=== PATIENT | female | born 1985 | race Caucasian/White ===

== ENCOUNTER 2024-09-13 14:13 | Emergency (ER) | payer MEDICAID ==
[~2024-09-13] VITALS: Ht 165.1 cm; Wt 52.0 kg
[2024-09-13] MEDS ORDERED: OMEPRAZOLE20 MG PO (14:29)
[2024-09-13] MEDS ORDERED: PHENERGAN25 MG/1 M1 INJ (14:30)
[2024-09-13] MEDS ORDERED: ONDANSETRON ODT8 MG PO (14:30)
[2024-09-13] MEDS ORDERED: NEURONTIN300 MG PO (14:30)
[2024-09-13] MEDS ORDERED: ondansetron HCL 4 MG/2 ML VIAL IV ONE ×2 (14:45→16:00)
[2024-09-13 14:47] LABS: BASOPHILS 0.3 % (0-2); EOSINOPHILS 0.2 % (0-6); HEMATOCRIT 49.1 % (35.0-50.0); HEMOGLOBIN 16.9 g/dL (12.0-18.0); LYMPHOCYTES 9.9 % (24-44); MCH 31.7 (27-36); MCHC 34.4 g/dl (30-36); MCV 92.3 fl (81-99); NEUTROPHILS 85.6 % (39-80); PLATELET COUNT 322 K/uL (140-440); RBC 5.32 M/ul (4.3-5.7); RDW 13.8 (10.5-15.0)
[2024-09-13 15:03] LABS: ALBUMIN 4.6 g/dL (3.4-5.0); ALBUMIN/GLOBULIN RATIO 1.15 (1.1-2.4); ANION GAP 18.6 (7-21); BILIRUBIN, TOTAL 0.4 ng/dL (0.2-1.0); BUN/CREATININE RATIO 5.88 (6.0-28.6); CALCIUM 10.3 mg/dL (8.5-10.1); CREATININE, SERUM 0.85 mg/dL (0.55-1.02); MAGNESIUM 1.9 mg/dL (1.8-2.4); POTASSIUM 3.6 mmol/L (3.5-5.1); PROTEIN, TOTAL 8.6 g/dL (6.4-8.2)
--- OUTSIDE RECORDS SUMMARY | 2024-09-13 15:19 | XMS ---
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 Events No recent Security Events currently on file CRITERIA MET - 6 ED Visits in 6 Months - [facility] - 2 Visits in 30 Days - [facility] - 3 Facilities in 90 Days CARE PROVIDERS [facility], [facility]: Primary Care 07/05/2024-Current PRACTICE PHONE: [phone] Courtney White Current PHONE: [phone] ALEXANDER MUNOZ Automobile Wrecker/Ice Sculptor Current CARE [facility] TEAM PHONE: [phone] MEIR DOMINGUEZ V Internal Medicine Current PHONE: Unknown Care Guidelines exist for the following facilities: Julius Monroe ( 08/28/2016 ) Jj VISIT COUNT (12 MO.) [facility] ([facility] 9 [facility] [place] 4 [facility]. 2 [facility] 1 KERWIN Anne TOTAL 26 NOTE: Visits indicate total known visits. ED/UCC VISIT TRACKING (12 MO.) 09/13/2024 14:13 [facility] [place] TYPE: Emergency COMPLAINT: - ABDOMINAL PAIN 09/13/2024 10:16 [facility] Madhu HERNANDEZ ([place]) TYPE: Emergency DIAGNOSES: - Nausea with vomiting, unspecified - Other chronic pain - Unspecified abdominal pain - Abdominal Pain - EMS - Seizure (Adult - Prior Hx Of) 09/01/2024 11:09 [facility] Madhu HERNANDEZ ([place]) TYPE: Emergency DIAGNOSES: - Generalized abdominal pain - Opioid use, unspecified with withdrawal - Other chronic pain - abd pain, dehydration, n/v/d - Abdominal Pain - Back Pain - Emesis 08/29/2024 21:06 [facility] Madhu Leung DAVID (Madhu Leung) TYPE: Emergency DIAGNOSES: - Nausea with vomiting, unspecified - Upper abdominal pain, unspecified - Abdominal Pain - Emesis - vomiting 08/20/2024 21:57 [facility] Madhu Leung DAVID (Madhu Leung) TYPE: Emergency DIAGNOSES: - Other chronic pain - Other shoulder lesions, right shoulder - Pelvic and perineal pain - Medical Problem (Minor) - RS arm pain, Tailbone pain worsening 06/27/2024 19:23 [facility] TYPE: Emergency DIAGNOSES: 32653. Dehydration, Weight loss 06/10/2024 20:42 [facility] Madhu Leung DAVID (Madhu Leung) TYPE: Emergency DIAGNOSES: - Other specified diseases of anus and rectum - abd - abd pain - Abdominal Pain - Tailbone Pain 06/08/2024 23:46 [facility] [place] (Madhu Leung) TYPE: Emergency DIAGNOSES: - Unspecified abdominal pain - abd pain - Abdominal Pain 06/04/2024 21:06 [facility] [place] (Madhu Leung) TYPE: Emergency DIAGNOSES: - Other chest pain - Other chronic pain - Unspecified abdominal pain - chest pain 06/03/2024 15:26 [facility] [place] (Madhu Leung) TYPE: Emergency DIAGNOSES: - Unspecified abdominal pain - Abdominal Pain 05/13/2024 12:[facility]: [facility] DIAGNOSES: - Abnormal electrocardiogram [ECG] [EKG] - Other chronic pain - Unspecified abdominal pain - Rectal Bleed - Syncope - syncope, blood in stool 05/13/2024 02:20 [facility] [place] [place] TYPE: Emergency DIAGNOSES: - abd pain - Abdominal Pain 05/07/2024 04:25 [place] TYPE: Emergency DIAGNOSES: - Abdominal pain 04/26/2024 16:40 [facility] [place] TYPE: Emergency DIAGNOSES: - Abdominal Pain; emesis - Emesis 04/15/2024 23:51 [facility] HERNANDEZ (Madhu Leung) TYPE: Emergency DIAGNOSES: - Cyclical vomiting syndrome unrelated to migraine - Epigastric pain - abd pain - Abdominal Pain - Hematemesis [facility]24 [facility]: Emergency DIAGNOSES: - Fever, unspecified - Periumbilical pain - Abdominal Pain - Fever (9 Weeks To 74 Years) - vomiting,seizures,abd pain - Weight Loss 03/08/2024 19:31 [facility] [place] TYPE: Emergency DIAGNOSES: - Procedure and treatment not carried out due to patient leaving prior to being seen by health care provider - Abdominal Pain - Stomach pain 02/27/2024 11:25 [facility] [place] TYPE: Emergency DIAGNOSES: - Gastrointestinal hemorrhage, unspecified - Unspecified abdominal pain - abd pain - Abdominal Pain 12/14/2023 10:34 [facility] TYPE: Emergency DIAGNOSES: 23015. seizures 62802. Noninfective gastroenteritis and colitis, unspecified . Unspecified abdominal pain . Unspecified convulsions 12/13/2023 11:43 Anne-Marie GARRISON [place] TYPE: Emergency DIAGNOSES: - Procedure and treatment not carried out due to patient leaving prior to being seen by health care provider - Abdominal Pain - pain Plus 6 More Visits INPATIENT VISIT TRACKING (12 MO.) No inpatient visits to display in this time frame [email or web address]
[2024-09-13] MEDS ORDERED: SODIUM CHLORIDE 0.9% 1,000 ML IV PRN (16:00)
[2024-09-13] MEDS ORDERED: MORPHINE SULFATE 4 MG/ML VIAL IV ONE ×2 (16:00→17:45)
[2024-09-13 17:00] LABS: BILIRUBIN, URINE NEGATIVE (negative); BLOOD/HGB, URINE NEGATIVE (Negative); KETONE, URINE TRACE (Negative); LEUK ESTERASE, URINE NEGATIVE (negative); NITRITE, URINE NEGATIVE (negative); PH, URINE 8.5 (5-7)
[2024-09-13] MEDS ORDERED: LIDOCAINE & ANTACID 35 ML BTL PO ONE (17:15)
[2024-09-13 18:05] VITALS: BP 133/100
== END 2024-09-13 18:00 | disposition home or self-care (01) ==
LOC: ED 14:13
PROVIDERS: Emergency Medicine
DX: R10.9 Unspecified abdominal pain (principal); F11.23 Opioid dependence with withdrawal; Z88.6 Allergy status to analgesic agent; Z88.8 Allergy status to other drugs, medicaments and biological substances; Z79.899 Other long term (current) drug therapy
CPT/HCPCS: 36415; 80053; 81003; 83690; 83735; 84703; 85025; 96374; 96375; 96376; 99284-25; J2270; J2405; J7030

== ENCOUNTER 2025-03-07 22:24 | Emergency (ER) | payer MEDICAID ==
[~2025-03-07] VITALS: Ht 165.1 cm; Wt 50.0 kg
[~2025-03-07 22:24] MED LIST: NEURONTIN300 MG PO; OMEPRAZOLE20 MG PO; ONDANSETRON ODT8 MG PO; PHENERGAN25 MG/1 M1 INJ
--- OUTSIDE RECORDS SUMMARY | 2025-03-07 22:31 | XMS ---
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 TEAM PHONE: [phone] MEIR DOMINGUEZ V Internal Medicine Current PHONE: Unknown Care Guidelines exist for the following facilities: Julius Kaya Monroe ( 08/28/2015 ) Jj VISIT COUNT (12 MO.) 15 [facility] [place] (Madhu Leung) [facility] 1 [facility] TOTAL 23 NOTE: Visits indicate total known visits. ED/UCC VISIT TRACKING (12 MO.) 03/07/2025 22:25 [facility]ERWIN [place] TYPE: Emergency COMPLAINT: - FLANK PAIN 03/06/2025 02:17 [facility] Madhu HERNANDEZ ([place]) TYPE: Emergency DIAGNOSES: - Dehydration - Nausea with vomiting, unspecified - Other chronic pain - Unspecified abdominal pain - Unspecified convulsions - Emesis - Seizure (Adult - Prior Hx Of) 02/01/2025 11:03 [facility] Madhu HERNANDEZ ([place]) TYPE: Emergency DIAGNOSES: - Vomiting, unspecified - Emesis - vomiting with blood 02/01/2025 01:19 [facility] Madhu HERNANDEZ ([place]) TYPE: Emergency DIAGNOSES: - Nausea with vomiting, unspecified - Other chronic pain - Unspecified abdominal pain - Abdominal Pain 01/11/2025 22:11 [facility] Madhu Leung DAVID ([place]) TYPE: Emergency DIAGNOSES: - Other chronic pain - Unspecified abdominal pain - Abdominal Pain - Chest Pain;Abdominal Pain 12/05/2024 13:59 [facility] [place]ID ([place]) TYPE: Emergency DIAGNOSES: - Unspecified abdominal pain - Unspecified hemorrhoids - Dizziness - dizziness,poss loc,abd pain - [place] 09/13/2024 14:13 [facility] [place] TYPE: Emergency COMPLAINT: - ABDOMINAL PAIN DIAGNOSES: - Allergy status to analgesic agent - Allergy status to other drugs, medicaments and biological substances - Opioid dependence with withdrawal - Other fdc (current) drug therapy - Unspecified abdominal pain 09/13/2024 10:16 [facility] Madhu HERNANDEZ (Madhu Leung) TYPE: Emergency DIAGNOSES: - Nausea with vomiting, unspecified - Other chronic pain - Unspecified abdominal pain - Abdominal Pain - EMS - Seizure (Adult - Prior Hx Of) 09/01/2024 11:09 [facility] Madhu HERNANDEZ (Madhu Leung) TYPE: Emergency DIAGNOSES: - Generalized abdominal pain - Opioid use, unspecified with withdrawal - Other chronic pain - abd pain, dehydration, n/v/d - Abdominal Pain - Back Pain - Emesis 08/29/2024 21:06 [facility] Madhu HERNANDEZ ([place]) TYPE: Emergency DIAGNOSES: - Nausea with vomiting, unspecified - Upper abdominal pain, unspecified - Abdominal Pain - Emesis - vomiting 08/20/2024 21:57 [facility] Madhu HERNANDEZ (Madhu Leung) TYPE: Emergency DIAGNOSES: - Other chronic pain - Other shoulder lesions, right shoulder - Pelvic and perineal pain - Medical Problem (Minor) - RS arm pain, Tailbone pain worsening 06/27/2024 19:23 [facility] TYPE: Emergency DIAGNOSES: 59241. Dehydration, Weight loss 06/10/2024 20:42 [facility] Madhu HERNANDEZ ([place]) TYPE: Emergency DIAGNOSES: - Other specified diseases of anus and rectum - abd - abd pain - Abdominal Pain - Tailbone Pain 06/08/2024 23:46 [facility] Madhu HERNANDEZ (Madhu Leung) TYPE: Emergency DIAGNOSES: - Unspecified abdominal pain - abd pain - Abdominal Pain 06/04/2024 21:06 [facility] Madhu Leung DAVID ([place]) TYPE: Emergency DIAGNOSES: - Other chest pain - Other chronic pain - Unspecified abdominal pain - chest pain 06/03/2024 15:26 [facility] Madhu Leung DAVID ([place]) TYPE: Emergency DIAGNOSES: - Unspecified abdominal pain - Abdominal Pain 05/13/2024 [facility] DIAGNOSES: - Abnormal electrocardiogram [ECG] [EKG] - Other chronic pain - Unspecified abdominal pain - Rectal Bleed - Syncope - syncope, blood in stool 05/13/2024 02:20 [facility] [place] [facility]: Emergency DIAGNOSES: - abd pain - Abdominal Pain 05/07/2024 04:25 [facility] [place] TYPE: Emergency DIAGNOSES: - Abdominal pain 04/26/2024 16:40 [facility] [place] TYPE: Emergency DIAGNOSES: - Abdominal Pain; emesis - Emesis Plus 3 More Visits INPATIENT VISIT TRACKING (12 MO.) No inpatient visits to display in this time frame [email or web address]
[2025-03-07] MEDS ORDERED: LAMICTAL100 MG PO (23:09)
[2025-03-07] MEDS ORDERED: ondansetron HCL 4 MG/2 ML VIAL IV ONE (23:30)
[2025-03-07 23:35] LABS: BASOPHILS 0.4 % (0.1-1.2); EOSINOPHILS 0.9 % (0.7-5.8); HEMATOCRIT 43.9 % (34.1-44.9); LYMPHOCYTES 31.2 % (19.3-51.7); MCH 30.5 PG (25.6-32.2); MCHC 34.2 g/dL (32.2-35.5); MCV 89.2 fL (79.4-94.8); MONOCYTES 6.2 % (4.7-12.5); PLATELET COUNT 262 K/uL (182-369); RBC 4.92 M/uL (3.93-5.22)
[2025-03-07] MEDS ORDERED: FAMOTIDINE 20 MG/ 2 ML VIAL IV ONE (23:45)
[2025-03-07] MEDS ORDERED: HYDROmorphone HCL 1 MG/ML SYR IV ONE (23:45)
[2025-03-07] MEDS ORDERED: LACTATED RINGER'S 1,000 ML IV ONE (23:45)
[2025-03-07 23:46] LABS: ALBUMIN 4.2 g/dL (3.4-5.0); ALBUMIN/GLOBULIN RATIO 1.35 (1.1-2.4); ANION GAP 11.4 (7-21); BILIRUBIN, TOTAL 0.8 mg/dL (0.2-1.0); BUN/CREATININE RATIO 8.69 (6.0-28.6); CALCIUM 9.7 mg/dL (8.5-10.1); CREATININE, SERUM 0.69 mg/dL (0.55-1.02); POTASSIUM 3.4 mmol/L (3.5-5.1); PROTEIN, TOTAL 7.3 g/dL (6.4-8.2)
[2025-03-08] MEDS ORDERED: PROMETHAZINE HCL 50 MG/ML SDV IM ONE (01:00)
[2025-03-08] MEDS ORDERED: KETOROLAC TROMETHAMINE 30 MG/ML VIAL IV ONE (01:15)
[2025-03-08 01:28] LABS: BILIRUBIN, URINE NEGATIVE (negative); BLOOD/HGB, URINE NEGATIVE (Negative); KETONE, URINE NEGATIVE (Negative); LEUK ESTERASE, URINE NEGATIVE (negative); NITRITE, URINE NEGATIVE (negative); PH, URINE 6.5 (5-7)
[2025-03-08 01:31] LABS: BARBITURATES, URINE NEGATIVE (NEGATIVE)
[2025-03-08 01:40] LABS: AMPHETAMINES, URINE NEGATIVE (NEGATIVE); BENZODIAZEPINE, URINE NEGATIVE (NEGATIVE); BUPRENORPHINE, URINE NEGATIVE (NEGATIVE); CANNABINOID, URINE POSITIVE (NEGATIVE); COCAINE, URINE NEGATIVE (NEGATIVE); ECSTASY, URINE NEGATIVE (NEGATIVE); FENTANYL, URINE POSITIVE (NEGATIVE); METHADONE, URINE NEGATIVE (NEGATIVE); OPIATES, URINE POSITIVE (NEGATIVE); OXYCODONE, URINE POSITIVE (NEGATIVE); PHENCYCLIDINE, URINE NEGATIVE (NEGATIVE)
[2025-03-08] MEDS ORDERED: HYDROmorphone HCL 1 MG/ML SYR IV ONE (02:00)
[2025-03-08 02:50] VITALS: BP 107/72
== END 2025-03-08 02:50 | disposition home or self-care (01) ==
LOC: ED 22:24
PROVIDERS: Internal Medicine
DX: G40.909 Epilepsy, unspecified, not intractable, without status epilepticus (principal); S20.211A Contusion of right front wall of thorax, initial encounter; G89.29 Other chronic pain; W19.XXXA Unspecified fall, initial encounter; Z79.899 Other long term (current) drug therapy; Z88.6 Allergy status to analgesic agent; Z88.8 Allergy status to other drugs, medicaments and biological substances
CPT/HCPCS: 36415; 70450; 71045; 80053; 80307; 81003; 84702; 85025; 96361; 96374; 96375; 96376; 99284-25; J1171; J1885; J2405; J2550; J7121